=== PATIENT | male | born 1990 | race Hispanic/Latino ===

== ENCOUNTER 2019-09-24 21:34 | Emergency (ER) | payer SELFPAY ==
--- NOTE | 2019-09-24 22:27 | RAD REPORT ---
EXAM DESCRIPTION: RAD - Chest Pa And Lat (2 Views) - 09/24/2019 10:17 pm CLINICAL HISTORY: DYSPNEA Chest pain. COMPARISON: No comparisons FINDINGS: The lungs are clear. The heart is normal in size. No displaced fractures. IMPRESSION: No acute or concerning finding suspected.
--- NOTE | 2019-09-24 22:55 | ER ---
Nurse's Notes [facility] Name: Ran Sheppard Age: 29 yrs Sex: Male : 1990 Arrival Date: 09/24/2019 Time: 21:42 Bed 30 Private MD: Diagnosis: Dyspnea, unspecified Presentation: 09/23 21:43 Chief complaint: Patient states: SOB and chest discomfort started at about 1500 today. ca1 Reports cough x 2 days. Denies fever. Coronavirus screen: Surgical mask placed on patient. Patient moved to private room, placed in contact and droplet isolation with eye protection until further assessment. Patient reports a cough. Patient reports shortness of breath or difficulty breathing. Patient denies measured and/or subjective temperature greater than 100.4F. Patient denies travel on a cruise ship or to a country the [facility] [place] as an affected area. Patient denies contact with known and/or suspected case of COVID-19. Infection Prevention Nurse has been notified of patient in isolation for probable COVID-19. Ebola Screen: Patient negative for fever greater than or equal to 101.5 degrees Fahrenheit, and additional compatible Ebola Virus Disease symptoms Patient denies exposure to infectious person. Patient denies travel to an Ebola-affected area in the 21 days before illness onset. No symptoms or risks identified at this time. Initial Sepsis Screen: Does the patient meet any 2 criteria? No. Patient's initial sepsis screen is negative. Does the patient have a suspected source of infection? No. Patient's initial sepsis screen is negative. Risk Assessment: Do you want to hurt yourself or someone else? Patient reports no desire to harm self or others. Note Pt works at the [employer]. Onset of symptoms was September 24, 2019 at 15:00. 21:43 Method Of Arrival: Ambulatory ca1 21:43 Acuity: MAGNO 3 ca1 Historical: - Allergies: 21:45 No Known Allergies; ca1 - Home Meds: 21:45 None [Active]; ca1 - PMHx: 21:45 None; ca1 - PSHx: 21:45 None; ca1 - Immunization history:: Adult Immunizations not up to date, Flu vaccine is not up to date. - Social history:: Smoking status: Patient reports the use of cigarette tobacco products, smokes one-half pack cigarettes per day. Screenin:07 Abuse screen: Denies threats or abuse. Nutritional screening: No deficits noted. ea Tuberculosis screening: No symptoms or risk factors identified. Fall Risk None identified. Assessment: 22:07 General: Appears in no apparent distress. Behavior is calm, cooperative, appropriate ea for age. Pain: Denies pain. Neuro: No deficits noted. Cardiovascular: Patient's skin is warm and dry. Respiratory: Airway is patent Respiratory effort is even, unlabored, Respiratory pattern is regular, symmetrical. Derm: Skin is pink, warm \T\ dry. 22:49 Reassessment: Patient and/or family updated on plan of care and expected duration. Pain ea level reassessed. Patient is alert, oriented x 3, equal unlabored respirations, skin warm/dry/pink. Provider updating pt on plan of care. 23:00 Reassessment: Patient and/or family updated on plan of care and expected duration. Pain ea level reassessed. Patient is alert, oriented x 3, equal unlabored respirations, skin warm/dry/pink. Discharge instruction given to patient, verbalized the understanding of instruction. Pt left ED ambulatory, tolerating well. Vital Signs: 21:43 BP 150 / 89; Pulse 85; Resp 17 S; Temp 98.6(TE); Pulse Ox 99% on R/A; Weight 100.7 kg ca1 (R); Height 5 ft. 5 in. (165.10 cm) (R); Pain 4/10; 22:56 BP 148 / 78; Pulse 80; Resp 18; Pulse Ox 99% ; ea 21:43 Body Mass Index 36.94 (100.70 kg, 165.10 cm) ca1 ED Course: 21:42 Patient arrived in ED. mr 21:44 Lena Guzman FNP-C is PHCP. kb 21:44 Chirag Moreno MD is Attending Physician. kb 21:45 Triage completed. ca1 21:45 Arm band placed on right wrist. ca1 22:04 Berna Desai, ALYSSA is Primary Nurse. ea 22:07 Patient has correct armband on for positive identification. Bed in low position. Call ea light in reach. Side rails up X2. 22:18 Chest Pa And Lat (2 Views) XRAY In Process Unspecified. EDMS 22:22 Flu Sent. lt1 22:22 EKG done, by ED staff, reviewed by Lena RODRIGUEZ Flu and/or RSV swab sent to lt1 lab. 22:56 No provider procedures requiring assistance completed. Patient did not have IV access ea during this emergency room visit. Administered Medications: No medications were administered Outcome: 22:54 Discharge ordered by . owen 23:01 Discharged to home ambulatory. ea 23:01 Condition: stable 23:01 Discharge instructions given to patient, Instructed on discharge instructions, follow up and referral plans. Demonstrated understanding of instructions, follow-up care. 23:02 Patient left the ED. ea Signatures: Dispatcher [employer] EDMS Lena Guzman, IDALIAC CELL CLEANER-Ckb Martina GarciaBerna, RN RN Riya Smith RN RN Estrellita Anderson 1 Corrections: (The following items were deleted from the chart) 21:45 21:43 Acuity: MAGNO 4 ca1 ca1
--- NOTE | 2019-09-24 22:55 | EDPHYS ---
Physician Documentation [facility] Name: Ran Sheppard Age: 29 yrs Sex: Male : 1990 Arrival Date: 09/24/2019 Time: 21:42 Bed 30 Private MD: ED Physician Chirag Moreno HPI: 09/23 22:39 This 29 yrs old Male presents to ER via Ambulatory with complaints of kb Breathing Difficulty. 22:39 The patient has shortness of breath with light activity. Onset: The symptoms/episode kb began/occurred today. Duration: The symptoms are intermittent. The patient's shortness of breath is aggravated by light activity. Associated signs and symptoms: Pertinent positives: chest pain, Pertinent negatives: non-productive cough, productive cough, diaphoresis, dizziness, fever, hemoptysis, loss of consciousness, nausea, numbness in extremities, visual changes, vomiting. Severity of symptoms: At their worst the symptoms were mild in the emergency department the symptoms are unchanged. The patient has not experienced similar symptoms in the past. The patient has not recently seen a physician. Pt reports shortness of breath that started today. 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 States he is pretty sure all the news of the coronavirus is getting to him and that is all it is, but he just wanted to be sure. . Historical: - Allergies: 21:45 No Known Allergies; ca1 - Home Meds: 21:45 None [Active]; ca1 - PMHx: 21:45 None; ca1 - PSHx: 21:45 None; ca1 - Immunization history:: Adult Immunizations not up to date, Flu vaccine is not up to date. - Social history:: Smoking status: Patient reports the use of cigarette tobacco products, smokes one-half pack cigarettes per day. ROS: 09/24 00:07 Constitutional: Negative for fever, chills, and weight loss, ENT: Negative for injury, kb pain, and discharge, Neck: Negative for injury, pain, and swelling, Cardiovascular: Negative for chest pain, palpitations, and edema, Abdomen/GI: Negative for abdominal pain, nausea, vomiting, diarrhea, and constipation, Back: Negative for injury and pain, MS/Extremity: Negative for injury and deformity, Skin: Negative for injury, rash, and discoloration, Neuro: Negative for headache, weakness, numbness, tingling, and seizure. Respiratory: Positive for shortness of breath, Negative for cough, dyspnea on exertion, hemoptysis, orthopnea, pleurisy, sputum production, wheezing. Exam: 00:07 Constitutional: This is a well developed, well nourished patient who is awake, alert, kb and in no acute distress. Head/Face: Normocephalic, atraumatic. ENT: Nares patent. No nasal discharge, no septal abnormalities noted. Tympanic membranes are normal and external auditory canals are clear. Oropharynx with no redness, swelling, or masses, exudates, or evidence of obstruction, uvula midline. Mucous membranes moist. Neck: Trachea midline, no thyromegaly or masses palpated, and no cervical lymphadenopathy. Supple, full range of motion without nuchal rigidity, or vertebral point tenderness. No Meningismus. Chest/axilla: Normal chest wall appearance and motion. Nontender with no deformity. No lesions are appreciated. Cardiovascular: Regular rate and rhythm with a normal S1 and S2. No gallops, murmurs, or rubs. Normal PMI, no JVD. No pulse deficits. Respiratory: Lungs have equal breath sounds bilaterally, clear to auscultation and percussion. No rales, rhonchi or wheezes noted. No increased work of breathing, no retractions or nasal flaring. Abdomen/GI: Soft, non-tender, with normal bowel sounds. No distension or tympany. No guarding or rebound. No evidence of tenderness throughout. Skin: Warm, dry with normal turgor. Normal color with no rashes, no lesions, and no evidence of cellulitis. MS/ Extremity: Pulses equal, no cyanosis. Neurovascular intact. Full, normal range of motion. Neuro: Awake and alert, GCS 15, oriented to person, place, time, and situation. Cranial nerves II-XII grossly intact. Motor strength 5/5 in all extremities. Sensory grossly intact. Cerebellar exam normal. Normal gait. 00:07 ECG was reviewed by the Attending Physician. Vital Signs: 09/23 21:43 BP 150 / 89; Pulse 85; Resp 17 S; Temp 98.6(TE); Pulse Ox 99% on R/A; Weight 100.7 kg ca1 (R); Height 5 ft. 5 in. (165.10 cm) (R); Pain 4/10; 22:56 BP 148 / 78; Pulse 80; Resp 18; Pulse Ox 99% ; ea 21:43 Body Mass Index 36.94 (100.70 kg, 165.10 cm) ca1 MDM: 21:46 Patient medically screened. kb 22:39 Data reviewed: vital signs, nurses notes. Data interpreted: Pulse oximetry: on room air kb is 99 %. Interpretation: normal. Counseling: I had a detailed discussion with the patient and/or guardian regarding: the historical points, exam findings, and any diagnostic results supporting the discharge/admit diagnosis, lab results, radiology results, the need for outpatient follow up, a family practitioner, to return to the emergency department if symptoms worsen or persist or if there are any questions or concerns that arise at home. 09/23 21:55 Order name: Flu; Complete Time: 22:39 kb 09/23 21:55 Order name: Chest Pa And Lat (2 Views) XRAY; Complete Time: 22:39 kb EC/27 00:07 Rate is 81 beats/min. Rhythm is regular. QRS [place] is Normal. [place] interval is normal at kb 128 msec. QRS interval is normal at 86 msec. QT interval is normal at 344 msec. Administered Medications: No medications were administered Disposition: 09/24/19 22:54 Discharged to Home. Impression: Dyspnea, unspecified. - Condition is Stable. - Discharge Instructions: Shortness of Breath, [id number]. - Medication Reconciliation Form, Thank You Letter, Antibiotic Education, Prescription Opioid Use form. - Follow up: Emergency Department; When: As needed; Reason: Worsening of condition. Follow up: Private Physician; When: 2 - 3 days; Reason: Recheck today's complaints, Continuance of care, Re-evaluation by your physician. Addendum: 09/26/2019 02:29 Co-signature as Attending Physician, Chirag Moreno MD. m a2 Signatures: Dispatcher [employer] Lena Farfan FNP-C FNP-Ckb Antunez, Elena, RN RN Chirag Dhaliwal MD MD ma2 Riya Sánchez RN RN ca1 Corrections: (The following items were deleted from the chart) 09/23 22:05 21:58 Chest Pa And Lat (2 Views)+[email or web address].[email or web address] ordered. [facility] EDMS 22:55 22:54 09/24/2019 22:54 Discharged to Home. Impression: Person with feared health kb complaint in whom no diagnosis is made. Condition is Stable. Forms are Medication Reconciliation Form, Thank You Letter, Antibiotic Education, Prescription Opioid Use. Follow up: Emergency Department; When: As needed; Reason: Worsening of condition. Follow up: Private Physician; When: 2 - 3 days; Reason: Recheck today's complaints, Continuance of care, Re-evaluation by your physician. kb 23:02 22:55 09/24/2019 22:54 Discharged to Home. Impression: Dyspnea, unspecified. Condition ea is Stable. Discharge Instructions: Shortness of Breath, [id number]. Forms are Medication Reconciliation Form, Thank You Letter, Antibiotic Education, Prescription Opioid Use. Follow up: Emergency Department; When: As needed; Reason: Worsening of condition. Follow up: Private Physician; When: 2 - 3 days; Reason: Recheck today's complaints, Continuance of care, Re-evaluation by your physician. kb
[2019-09-24 23:09] VITALS: TEMP 98.6; O2SAT 99
[2019-09-24 23:11] VITALS: BP 148/78
--- NOTE | 2019-09-25 11:21 | EKG ---
Test Date: 2019-09-24 Test Time: 22:19:36 Diabetes Manager: SAMT MEASUREMENT RESULTS: Intervals: Rate: 81 FL: 128 QRSD: 86 QT: 344 QTc: 399 [place]: P: 73 FL: 128 QRS: 31 T: 13 INTERPRETIVE STATEMENTS: Normal sinus rhythm Normal ECG No previous ECG available for comparison Electronically Signed On 09-25-19 11:20:13 CDT by Eduar Urrutia
== END 2019-09-24 23:02 | disposition home or self-care (01) ==
LOC: ER 21:34
DX: R06.00 Dyspnea, unspecified (principal); F17.210 Nicotine dependence, cigarettes, uncomplicated
CPT/HCPCS: 71046; 87804; 93005; 99283